=== PATIENT | female | born 1985 | race Caucasian/White ===

== ENCOUNTER 2021-12-10 01:36 | Emergency (ER) | payer OTHER ==
[~2021-12-10 01:36] MED LIST: CEFUROXIME500 MG PO; CIPRO500 MG PO; FLOMAX0.4 MG PO; NORCO 5-325 TA1 EACH PO; NORCO 7.5-3251 EACH PO; PYRIDIUM200 MG PO; TORADOL 10 MG T10 MG PO; XULANE PATCH1 EACH TD
[2021-12-10] MEDS ORDERED: ZOFRAN ODT 4 MG4 MG PO (05:36)
[2021-12-10] MEDS ORDERED: LODINE CAP 300300 MG PO (05:36)
== END 2021-12-10 05:51 | disposition home or self-care (01) ==
LOC: ER1 01:36
DX: U07.1 COVID-19 (principal); Z87.442 Personal history of urinary calculi
CPT/HCPCS: 0240U; 96374; 96375; 99284; J1100; J1200; J1885; J2405

== ENCOUNTER → 2021-12-26 | Outpatient (CLI) | payer OTHER ==
[~2021-12-26] MED LIST changes: +LODINE CAP 300300 MG PO; +ZOFRAN ODT 4 MG4 MG PO
== END ==
LOC: EXRD 11:04
DX: K59.00 Constipation, unspecified (principal)
CPT/HCPCS: 74018

== ENCOUNTER → 2022-01-09 | Outpatient (CLI) | payer OTHER | LOC: KOH-I 09:13 | DX: R74.8 Abnormal levels of other serum enzymes (principal); K76.0 Fatty (change of) liver, not elsewhere classified | CPT/HCPCS: 76705 ==